=== PATIENT | male | born 1975 | race Caucasian/White ===

== ENCOUNTER 2025-06-26 21:29 | Emergency (ER) | payer SELFPAY ==
[~2025-06-26] VITALS: Ht 182.9 cm; Wt 86.4 kg
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
[2025-06-26 22:09] VITALS: BP 105/3; PULSE 81; RESP 16; TEMP 97.8; O2SAT 99
== END 2025-06-26 22:11 ==
LOC: ER 21:30
DX: Z02.89 Encounter for other administrative examinations (principal); Z88.0 Allergy status to penicillin
CPT/HCPCS: 99283